=== PATIENT | female | born 1955 | race Caucasian/White ===

== ENCOUNTER 2019-03-09 07:19 | Emergency (ER) | payer OTHER ==
[2019-03-09 07:45] VITALS: PULSE 96; TEMP 99.4; BMI 24.7
--- NOTE | 2019-03-09 08:05 | PDOC ---
Attending Attestation - Resident Resident Name: JessicamarkelDeborah - ED Attending Attestation I have performed the following: I have examined & evaluated the patient, The case was reviewed & discussed with the resident, I agree w/resident's findings & plan, Exceptions are as noted - HPI HPI: 03/09/19 08:22 63yo F hx HL presents to the ED with abd pain x 3 days a/w diarrhea. Abd pain is crampy, diffuse, no area where it is worse. Has had innumberable episodes of non blood diarrhea overnight. Ate fish last night, but other family members ate food. +subjective fever, no chills. +nausea, no vomiting. States she feels dehydrated. Denies dizziness. Reports some sick grandkids recently with "colds. " Denies headache, weakness/numbness, cp, sob, le edema/pain, rashes. 0 - Physicial Exam PE: 03/09/19 08:23 GENERAL: Awake, alert, and fully oriented, in no acute distress. EYES: PERRLA, EOMI, sclera anicteric, conjunctiva clear ENT: Oropharynx clear without exudates. dry MM NECK: Normal ROM, supple, no lymphadenopathy, JVD, or masses LUNGS: Breath sounds equal, clear to auscultation bilaterally. No wheezes, and no crackles HEART: Regular rate and rhythm, normal S1 and S2, no murmurs, rubs or gallops ABDOMEN: Soft, diffuse mild ttp, normoactive bowel sounds. No guarding, no rebound. No masses EXTREMITIES: Normal range of motion, no edema. No cords, erythema, or tenderness NEUROLOGICAL: Normal speech, cranial nerves intact, equal strength and sensation b/l SKIN: Warm, Dry, normal turgor, no rashes or lesions noted. - Medical Decision Making 03/09/19 08:41 63yo F presents to the ED with diffuse crampy abd pain a/w watery, non blood diarrhea. Vitals unremarkable. Pt well appearing, but with dry MM and diffuse abd ttp. DDx includes but not limited to gastroenteritis vs colitis vs diverticulitis vs appendicitis. Labs with mildly elevated BUN, and mild hypokalemia to 3.3. Given persistent diffuse abd pain on serial abd exams, CTAP was ordered which was consistent with diarrheal illness and possible ileus but no obstruction. Pt given 1 L fluids for hydration. Feels much better, requests to go home. Pt will f/u with Dr. Brown within 1-2 days. Please see your primary care doctor within 1 week. Return to the emergency department immediately for any new or concerning symptoms or if your symptoms get worse. Thank you for coming to the Emergency Department today for your care. It was a pleasure to see you today. Please note that your evaluation is INCOMPLETE until you follow-up with your doctor.
--- NOTE | 2019-03-09 08:09 | PDOC ---
History of Present Illness - General Chief Complaint: Pain, Acute Stated Complaint: Diarrhea History Source: Patient Exam Limitations: Language Barrier - History of Present Illness Initial Comments: 03/09/19 08:05 89 y/o female with PMH of HLD comes in with abdominal pain and diarrhea. she states that the pain started a few days ago and it was not continuous. It was not associated with any radiation. She did not try taking anything for the pain. Last night she had some fish and then started to have diarrhea The diarrhea has been continuous, no blood in the diarrha. She denies taking any recent antibiotic use nor has she had any recent travel. She deniea any urinary symptoms. The pain this morning in her abdomen was an 8/10 she describes as a cramp. she denies any chills however she states that she felt hot, but did not take her temperature. she is not having any vomiting however is havign some lightheadedness 03/09/19 10:55 03/09/19 10:59 Timing/Duration: getting worse Severity: moderate Associated Symptoms: reports: diaphoresis Past History - Travel Traveled outside of the country in the last 30 days: No Close contact w/someone who was outside of country & ill: No - Past Medical History Allergies/Adverse Reactions: Allergies Allergy/AdvReac Type Severity Reaction Status Date / Time Penicillins Allergy Verified 03/09/19 07:40 Home Medications: Ambulatory Orders Atorvastatin Ca [Lipitor -] 40 mg PO HS tablet 05/14/14 Anemia: No Asthma: No Cancer: No Cardiac Disorders: No Hx Myocardial Infarction: No CVA: No COPD: No CHF: No DVT: No Dementia: No Diabetes: No Hx Glaucoma: No Dialysis: No GI Disorders: No Disorders: No HTN: No Hypercholesterolemia: Yes HIV: No Kidney Stones: No Liver Disease: No Psychiatric Problems: No Seizures: No Thyroid Disease: No Lung CA: No - Suicide/Smoking/Psychosocial Hx Smoking History: Never smoked Have you smoked in the past 12 months: No Hx Alcohol Use: No Drug/Substance Use Hx: No Substance Use Type: None Review of Systems - Review of Systems Able to Perform ROS?: Yes Is the patient limited Monegasque proficient: No Constitutional: Yes: Diaphoresis ABD/GI: Yes: Diarrhea, Nausea Neurological: Yes: Dizziness *Physical Exam - Vital Signs Last Vital Signs Temp Pulse Resp BP Pulse Ox 99.4 F 96 H 18 115/61 97 03/09/19 07:43 03/09/19 07:43 03/09/19 07:43 03/09/19 07:43 03/09/19 07:43 - Physical Exam General Appearance: Yes: Nourished Respiratory/Chest: positive: Lungs Clear Cardiovascular: positive: Regular Rate, S1, S2 Gastrointestinal/Abdominal: positive: Normal Bowel Sounds, Tender (tenderness throughout), Soft ED Treatment Course - LABORATORY CBC & Chemistry Diagram: 03/09/19 09:30 03/09/19 09:30 Medical Decision Making - Medical Decision Making 03/09/19 11:42 LABS/ct SCAN likely gastritis labe done: lipase normal going for CT given fluids 03/09/19 12:26 *DC/Admit/Observation/Transfer Diagnosis at time of Disposition: Diarrhea, Dehydration - Discharge Dispostion Disposition: HOME Condition at time of disposition: Stable Decision to Admit order: No - Referrals Referrals: Roger Brown MD [Primary Care Provider] - - Patient Instructions Printed Discharge Instructions: Diarrhea Additional Instructions: please follow up with dr. brown in one to two days if you have new or worsening symptoms of increased concerns, please return to the emergency room - Post Discharge Activity Forms/Work/School Notes: Back to Work - Attestations Physician Attestion: Deborah Berrios 03/09/19 13:50
[2019-03-09] MEDS ORDERED: SODIUM CHLORIDE 0.9% 500 ML INFUS.BAG IV ONE (08:26)
[2019-03-09 09:52] LABS: BASO % 0.3 % (0-2.0); EOS % 0.2 % (0-4.5); EPI CELLS 1.6 /HPF (0-5); HEMOGLOBIN 13.1 GM/dL (10.7-15.3); LYMPH % 4.8 % (8-40); MCH 31.3 pg (25.7-33.7); MCHC 33.7 g/dl (32.0-36.0); MEAN CELL VOLUME 92.9 fl (80-96); MEAN PLT VOLUME 9.2 fl (7.5-11.1); MONO % 3.2 % (3.8-10.2); NEUT % 91.5 % (42.8-82.8); PLATELET COUNT 190 K/MM3 (134-434); RDW 13.8 % (11.6-15.6); URINE APPEARANCE CLOUDY; URINE BACTERIA 5.6 /hpf (NEGATIVE); URINE BILIRUBIN NEGATIVE (NEGATIVE); URINE CASTS 4 /hpf (0-8); URINE COLOR YELLOW; URINE GLUCOSE (UA) NEGATIVE (NEGATIVE); URINE KETONE NEGATIVE (NEGATIVE); URINE LEUK ESTERASE NEGATIVE (NEGATIVE); URINE NITRITE NEGATIVE (NEGATIVE); URINE PROTEIN TRACE (NEGATIVE); URINE UROBILINOGEN 0.2 mg/dL (0.2-1.0); URINE WBC 3 /hpf (0-5); WHITE BLOOD COUNT 8.8 K/mm3 (4.0-10.0)
[2019-03-09 10:20] LABS: ALBUMIN 3.8 g/dl (3.4-5.0); ALK PHOS 121 U/L (45-117); ANION GAP 7 MMOL/L (8-16); BILIRUBIN,TOTAL 0.7 mg/dL (0.2-1); BLOOD UREA NITROGEN 24 mg/dL (7-18); CALCIUM 8.7 mg/dL (8.5-10.1); CHLORIDE 106 mmol/L (98-107); CO2 26 mmol/L (21-32); CREATININE 0.5 mg/dL (0.55-1.3); GLUCOSE,RANDOM 160 mg/dL (74-106); LIPASE 114 U/L (73-393); POTASSIUM 3.3 mmol/L (3.5-5.1); SGOT/AST 22 U/L (15-37); SGPT/ALT 31 U/L (13-61); SODIUM 138 mmol/L (136-145); TOT PROT 7.2 g/dl (6.4-8.2)
[2019-03-09 10:41] LABS: URINE RBC 29.6 /hpf (0-4)
[2019-03-09 13:56] LABS: ANISOCYTOSIS 0; HELMET CELLS 0; HOWELL-JOLLY BODIES 0; MACROCYTOSIS 0; OVALOCYTE 0; PLATELET ESTIMATE NORMAL; ROULEAU 0; SICKELED CELLS 0; TARGET CELLS 0; TEAR DROP CELLS 0; TOXIC GRANULATION 0
[2019-03-09 14:33] VITALS: BP 114/58
== END 2019-03-09 15:00 | disposition home or self-care (01) ==
LOC: JER 07:19
PROC: 3E0337Z Introduction of Electrolytic and Water Balance Substance into Peripheral Vein, Percutaneous Approach (ICD-10-PCS; principal; 2019-03-09)
DX: E86.0 Dehydration (principal); R19.7 Diarrhea, unspecified
CPT/HCPCS: 36415; 74177-TC; 80053; 81003; 83690; 85025; 99282-25

== ENCOUNTER 2019-05-22 12:09 | Emergency (ER) | payer OTHER ==
--- NOTE | 2019-05-22 12:26 | PDOC ---
Rapid Medical Evaluation Time Seen by Provider: 05/22/19 12:23 Medical Evaluation: Allergies Allergy/AdvReac Type Severity Reaction Status Date / Time Penicillins Allergy Verified 03/09/19 07:40 05/22/19 12:23 I have performed a brief in-person evaluation of this patient. The patient presents with a chief complaint of: Pelvic pain w/ urinary frequency x 3 days. H/o HLD Pertinent physical exam findings:stable and well tristian w/ unremarkable exam I have ordered the following:ua/cx The patient will proceed to the ED for further evaluation. 0 Discharge Disposition - Diagnosis Pelvic pain - Referrals - Patient Instructions - Post Discharge Activity
[2019-05-22 12:30] VITALS: BMI 24.7
[2019-05-22 12:50] LABS: EPI CELLS 1.4 /HPF (0-5/HPF); HYALINE CASTS 4 /lpf (0-8); PH,URINE 5.5 (5.0-8.0); URINE APPEARANCE CLEAR; URINE BACTERIA 16.9 /hpf (NEGATIVE); URINE BILIRUBIN NEGATIVE (NEGATIVE); URINE COLOR YELLOW; URINE GLUCOSE (UA) NEGATIVE (NEGATIVE); URINE KETONE NEGATIVE (NEGATIVE); URINE LEUK ESTERASE NEGATIVE (NEGATIVE); URINE NITRITE NEGATIVE (NEGATIVE); URINE PROTEIN NEGATIVE (NEGATIVE); URINE RBC 12 /hpf (0-4); URINE WBC 2 /hpf (0-5)
[2019-05-22] MEDS ORDERED: ACETAMINOPHEN 325 MG TABLET (FP) PO ONE (13:29)
[2019-05-22] MEDS ORDERED: ACETAMINOPHEN 325 MG TABLET (FP) ONE (13:36)
[2019-05-22 13:37] LABS: BASO % 0.8 % (0-2.0); EOS % 2.9 % (0-4.5); HEMATOCRIT 37.2 % (32.4-45.2); HEMOGLOBIN 12.7 GM/dL (10.7-15.3); MCH 30.9 pg (25.7-33.7); MCHC 34.1 g/dl (32.0-36.0); MEAN CELL VOLUME 90.7 fl (80-96); MEAN PLT VOLUME 9.1 fl (7.5-11.1); MONO % 8.6 % (3.8-10.2); NEUT % 48.7 % (42.8-82.8); PLATELET COUNT 228 K/MM3 (134-434); RDW 13.6 % (11.6-15.6)
--- NOTE | 2019-05-22 14:04 | PDOC ---
History of Present Illness - General Chief Complaint: Pain, Acute Stated Complaint: DOESNT FEEL WELL Time Seen by Provider: 05/22/19 12:23 - History of Present Illness Initial Comments: 05/22/19 14:02 63 years old with no significant past medical history presents to the ED with three-day history of left lower quadrant pain almost described as a vaginal discomfort No significant urinary symptoms Except for mild increased frequency. Symptoms are mild to moderate persistent concent no clear exacerbating or alleviating factors. Past History - Past Medical History Allergies/Adverse Reactions: Allergies Allergy/AdvReac Type Severity Reaction Status Date / Time Penicillins Allergy Verified 05/22/19 12:24 Home Medications: Ambulatory Orders Atorvastatin Ca [Lipitor -] 40 mg PO HS tablet 05/14/14 Sulfamethoxazole/Trimethoprim [Bactrim Ds Tablet] 1 each PO BID 7 Days #14 tablet 05/22/19 Anemia: No Asthma: No Cancer: No Cardiac Disorders: No CVA: No COPD: No CHF: No DVT: No Dementia: No Diabetes: No Dialysis: No GI Disorders: No Disorders: No HTN: No Hypercholesterolemia: Yes Kidney Stones: No Liver Disease: No Psychiatric Problems: No Seizures: No Thyroid Disease: No Lung CA: No - Suicide/Smoking/Psychosocial Hx Smoking History: Never smoked Have you smoked in the past 12 months: No Hx Alcohol Use: No Drug/Substance Use Hx: No Substance Use Type: None Review of Systems - Review of Systems Comments:: 05/22/19 14:46 ROS: A complete review of 10 out of 10 review of systems is taken and is negative apart from what is previously mentioned below and in the HPI. *Physical Exam - Vital Signs Last Vital Signs Temp Pulse Resp BP Pulse Ox 98.4 F 90 20 114/63 98 05/22/19 12:24 05/22/19 12:24 05/22/19 12:24 05/22/19 12:24 05/22/19 12:24 - Physical Exam Comments: 05/22/19 14:50 Vitals: Triage Vital signs reviewed General Appearance: no acute distress, well nourished well developed, Head: Atraumatic, Cardiac: Regular rate and rhythym, no murmurs, no rubs, no gallops, Lungs: Clear to auscultation bilateral, good air movement bilaterally, Abdomen: Soft, non distended, normal bowel sounds, left lower quadrant tenderness to palpation Genitourinary: No discharge no cervical motion tenderness no significant adnexal tenderness to palpation. Extremities: Full range of motion to all extremities, no cyanosis, clubbing, or edema Skin: Warm and dry, no rashes or lesions, no rash, no petechiae Neuro: AOX3; Cranial Nerves 2-12 grossly intact, Strength intact to all extremities, Sensation intact to all extremities,gait normal Psych: normal mood, normal affect ED Treatment Course - LABORATORY CBC & Chemistry Diagram: 05/22/19 11:20 05/22/19 11:20 - ADDITIONAL ORDERS Additional order review: Laboratory Results 05/22/19 12:30 Urine Color Yellow Urine Appearance Clear Urine pH 5.5 Ur Specific [place] 1.030 Urine Protein Negative Urine Glucose (UA) Negative Urine Ketones Negative Urine Blood 2+ H Urine Nitrite Negative Urine Bilirubin Negative Urine Urobilinogen 1.0 Ur Leukocyte Esterase Negative Urine WBC (Auto) 2 Urine RBC (Auto) 12 Urine Casts (Auto) 4 U Epithel Cells (Auto) 1.4 Urine Bacteria (Auto) 16.9 05/22/19 11:20 RBC 4.10 MCV 90.7 MCHC 34.1 RDW 13.6 MPV 9.1 Neutrophils % 48.7 D Lymphocytes % 39.0 D Monocytes % 8.6 D Eosinophils % 2.9 D Basophils % 0.8 - RADIOLOGY Radiology Studies Ordered: Category Date Time Status ABDOMEN & PELVIS CT WITH CONTR [CT] Stat CT Scan 05/22/19 13:06 Ordered - Medications Given in the ED: ED Medications Discontinued Medications Generic Name Dose Route Start Last Admin Trade Name Freq PRN Reason Stop Dose Admin Acetaminophen 650 mg 05/22/19 13:29 05/22/19 13:37 Tylenol - PO 05/22/19 13:30 650 mg ONCE ONE Administration Medical Decision Making - Medical Decision Making 05/22/19 14:50 Left lower quadrant abdominal tenderness to palpation. We'll check labs urinalysis CAT scan Tylenol for pain observe and reassess. No CVA ttp 05/22/19 16:57 Patient with mild suprapubic left lower quadrant discomfort. CT discussed with Dr. Mar no acute findings noted possibly some mild hydroureter Urinalysis with bacteria leukocytes and some blood will treat for presumed UTI Findings, the need for follow-up and strict return instructions discussed with patient. 05/22/19 16:57 *DC/Admit/Observation/Transfer Diagnosis at time of Disposition: Pelvic pain - Discharge Dispostion Disposition: HOME Decision to Admit order: No - Referrals - Patient Instructions Printed Discharge Instructions: Urinary Tract Infection Additional Instructions: Drink plenty of fluids. Alternate Tylenol Motrin as directed on package as needed for pain. Take Bactrim as prescribed. Return to ED for any fever vomiting severe worsening symptoms or for any concerns otherwise follow-up with your doctor on Saturday. - Post Discharge Activity Forms/Work/School Notes: Back to Work
[2019-05-22 14:17] LABS: ALBUMIN 3.7 g/dl (3.4-5.0); BILIRUBIN,TOTAL 0.3 mg/dL (0.2-1); BLOOD UREA NITROGEN 22.4 mg/dL (7-18); CALCIUM 8.7 mg/dL (8.5-10.1); CREATININE 0.6 mg/dL (0.55-1.3); POTASSIUM 3.7 mmol/L (3.5-5.1)
[2019-05-22 16:13] VITALS: BP 132/78; PULSE 65; TEMP 98.1
== END 2019-05-22 17:10 | disposition home or self-care (01) ==
LOC: JERFT 12:09
DX: N39.0 Urinary tract infection, site not specified (principal)
CPT/HCPCS: 36415; 74177-TC; 80053; 81003; 85025; 87086; 99284-25